=== PATIENT | female | born 1945 | race Caucasian/White ===

== ENCOUNTER 2025-01-21 22:41 | Inpatient (IN) | payer MEDICARE, OTHER ==
[~2025-01-21] VITALS: Ht 175.3 cm; Wt 108.9 kg
[2025-01-21 22:48] VITALS: TEMP 98.4
[2025-01-21] MEDS ORDERED: ACETAMINOPHEN 325 MG TAB PO STA (22:55)
[2025-01-21 23:06] VITALS: PULSE 81; RESP 27; O2SAT 99
[2025-01-21 23:59] LABS: HEMATOCRIT 37.6 % (34.2-44.1); HEMOGLOBIN 12.7 g/dL (12.0-16.0); LYMPHOCYTES # (AUTO) 0.5 (1.0-3.2); LYMPHOCYTES % 10.2 % (18.0-39.1); MEAN CORPUSCULAR HEMOGLOBIN 32.9 pg (28-32); MEAN CORPUSCULAR HGB CONC 33.8 g/dL (31-35); MEAN CORPUSCULAR VOLUME 97.4 fL (81-99); MONOCYTES # (AUTO) 0.8 (0.2-0.8); MONOCYTES % 15.8 % (4.4-11.3); NEUTROPHILS # (AUTO) 3.6 (2.1-6.9); NEUTROPHILS % 73.8 % (38.7-80.0); PLATELET COUNT 127 x10e3/uL (140-360); RED BLOOD COUNT 3.86 x10e6/uL (3.6-5.1); RED CELL DISTRIBUTION WIDTH 14.8 % (11.7-14.4); WHITE BLOOD COUNT 4.88 x10e3/uL (4.8-10.8)
[2025-01-22] VITALS (34 sets, daily range): BP systolic 106–179; BP diastolic 59–133; PULSE 51–90; RESP 14–31; TEMP 97.7–99; O2SAT 90–100
[2025-01-22] MEDS: LEVOFLOXACIN 750MG/D5W 150ML 150 ML IV ONE
[2025-01-22] MEDS: SODIUM CHLORIDE 0.9% 1000ML 1,000 ML IV STA (00:04)
[2025-01-22 00:20] LABS: ALBUMIN/GLOBULIN RATIO 1.2 (0.8-2.0); ANION GAP 17.7 mmol/L (8-16); BILIRUBIN,TOTAL 1.2 mg/dL (0.2-1.2); CALCIUM 9.5 mg/dL (8.4-10.2); CREATININE, SERUM 0.73 mg/dL (0.57-1.11); POTASSIUM 3.7 mmol/L (3.5-5.1); TOTAL PROTEIN 7.4 g/dL (6.5-8.1)
[2025-01-22 00:25] LABS: TROPONIN I 0.05 ng/mL (0-0.300)
[2025-01-22 00:35] LABS: CORONAVIRUS COVID-19 AG NEGATIVE (NEGATIVE); INFLUENZA A AG POSITIVE (NEGATIVE); INFLUENZA B AG NEGATIVE (NEGATIVE)
[2025-01-22] MEDS: HYDRALAZINE HCL 20 MG/ML VIAL IV STA (00:49)
[2025-01-22] MEDS ORDERED: ONDANSETRON HCL INJ 2MG/ML 2ML 2 MG/ML VIAL ONE (01:58)
[2025-01-22] MEDS ORDERED: HYDRALAZINE HCL 20 MG/ML VIAL IV PRN (02:00)
[2025-01-22] MEDS: ONDANSETRON HCL INJ 2MG/ML 2ML 2 MG/ML VIAL IV PRN (02:08)
[2025-01-22] MEDS ORDERED: FUROSEMIDE INJ 10 MG/ML 4 ML VIAL ONE (02:13)
[2025-01-22] MEDS: FUROSEMIDE INJ 10 MG/ML 4 ML VIAL IV SCH (02:17)
[2025-01-22] MEDS ORDERED: WARFARIN SODIU2.5 MG PO (04:01)
[2025-01-22] MEDS ORDERED: HYDROCHLOROTHIA25 MG PO (04:01)
[2025-01-22] MEDS ORDERED: TOPROL XL50 MG PO (04:01)
[2025-01-22] MEDS ORDERED: DIOVAN160 MG PO (04:01)
[2025-01-22] MEDS ORDERED: ARMOUR THYROID60 MG PO (04:03)
[2025-01-22] MEDS: Doxycycline IV 100 MG in SODIUM CHLORIDE 0.9% 100 ML IV SCH (08:24)
[2025-01-22] MEDS: VALSARTAN 160 MG TAB PO SCH (08:25)
[2025-01-22] MEDS: METOPROLOL SUCCINATE 50 MG TAB XL PO SCH (08:26)
[2025-01-22] MEDS: OSELTAMIVIR PHOSPHATE 75 MG CAP PO SCH (08:26)
[2025-01-22] MEDS: THYROID 60 MG TAB PO SCH (08:36)
[2025-01-22] MEDS ORDERED: IOPAMIDOL 370 MG/ML 100 ML INFUS..BTL INJ ONE (10:27)
[2025-01-22 11:25] LABS: INR 2.14
[2025-01-22 11:26] LABS: PARTIAL THROMBOPLASTIN TIME 40.5 seconds (23.8-35.5)
[2025-01-22 11:38] LABS: TROPONIN I 0.066 ng/mL (0-0.300)
[2025-01-22] MEDS ORDERED: ALBUTEROL/IPRATROPIUM 3 ML NEB NEB PRN (11:45)
[2025-01-22] MEDS: FUROSEMIDE INJ 10 MG/ML 4 ML VIAL IV ONE (12:44)
[2025-01-22] MEDS: WARFARIN SOD 2.5 MG TAB PO SCH (16:35)
[2025-01-22] MEDS: GUAIFENESIN 200 MG/10 ML UDC PO PRN (17:23)
[2025-01-22] MEDS ORDERED: LEVOFLOXACIN 750MG/D5W 150ML 150 ML IV SCH (21:00)
[2025-01-23] VITALS (35 sets, daily range): BP systolic 102–146; BP diastolic 57–106; PULSE 36–140; RESP 15–25; TEMP 99–100.1; O2SAT 89–100
[2025-01-23 07:11] LABS: BASOPHILS % 0.2 % (0.0-1.0); HEMATOCRIT 36.2 % (34.2-44.1); HEMOGLOBIN 12.2 g/dL (12.0-16.0); LYMPHOCYTES # (AUTO) 0.6 (1.0-3.2); LYMPHOCYTES % 12.1 % (18.0-39.1); MEAN CORPUSCULAR HEMOGLOBIN 33.1 pg (28-32); MEAN CORPUSCULAR HGB CONC 33.7 g/dL (31-35); MEAN CORPUSCULAR VOLUME 98.1 fL (81-99); MONOCYTES # (AUTO) 0.8 (0.2-0.8); MONOCYTES % 15.2 % (4.4-11.3); NEUTROPHILS # (AUTO) 3.7 (2.1-6.9); NEUTROPHILS % 72.1 % (38.7-80.0); PLATELET COUNT 125 x10e3/uL (140-360); RED BLOOD COUNT 3.69 x10e6/uL (3.6-5.1); RED CELL DISTRIBUTION WIDTH 14.6 % (11.7-14.4); WHITE BLOOD COUNT 5.13 x10e3/uL (4.8-10.8)
[2025-01-23] MEDS: ALBUTEROL/IPRATROPIUM 3 ML NEB NEB PRN (07:34)
[2025-01-23 07:40] LABS: INR 2.48; PROTHROMBIN TIME 28.1 seconds (11.9-14.5)
[2025-01-23 07:52] LABS: ALBUMIN 3.2 g/dL (3.5-5.0); ALBUMIN/GLOBULIN RATIO 1.2 (0.8-2.0); ANION GAP 12.8 mmol/L (8-16); BILIRUBIN,TOTAL 0.8 mg/dL (0.2-1.2); CALCIUM 8.7 mg/dL (8.4-10.2); CREATININE, SERUM 0.64 mg/dL (0.57-1.11); TOTAL PROTEIN 5.8 g/dL (6.5-8.1)
[2025-01-23 07:53] LABS: POTASSIUM 2.8 mmol/L (3.5-5.1)
[2025-01-23] MEDS: FUROSEMIDE INJ 10 MG/ML 4 ML VIAL IV SCH (08:12)
[2025-01-23 08:14] LABS: MAGNESIUM 1.6 MG/DL (1.3-2.1)
[2025-01-23] MEDS: METOPROLOL SUCCINATE 25 MG TAB XL PO SCH (08:19)
[2025-01-23 08:21] LABS: TROPONIN I 0.074 ng/mL (0-0.300)
[2025-01-23] MEDS: POTASSIUM CHLORIDE 20 MEQ TAB CR PO STA (08:28)
[2025-01-23 08:34] LABS: THYROID STIMULATING HORMONE 2.329 uIU/mL (0.350-4.940)
[2025-01-23] MEDS: MAGNESIUM SULFATE 2GM/50ML 50 ML IV ONE (09:33)
[2025-01-24] VITALS (17 sets, daily range): BP systolic 118–148; BP diastolic 66–109; PULSE 56–73; RESP 15–20; TEMP 97.4–99.1; O2SAT 95–100
[2025-01-24 06:58] LABS: BASOPHILS % 0.3 % (0.0-1.0); HEMOGLOBIN 12.4 g/dL (12.0-16.0); LYMPHOCYTES # (AUTO) 0.5 (1.0-3.2); LYMPHOCYTES % 13.8 % (18.0-39.1); MEAN CORPUSCULAR HEMOGLOBIN 32.9 pg (28-32); MEAN CORPUSCULAR HGB CONC 33.5 g/dL (31-35); MEAN CORPUSCULAR VOLUME 98.1 fL (81-99); MONOCYTES # (AUTO) 0.6 (0.2-0.8); MONOCYTES % 17.4 % (4.4-11.3); NEUTROPHILS # (AUTO) 2.4 (2.1-6.9); NEUTROPHILS % 67.9 % (38.7-80.0); PLATELET COUNT 115 x10e3/uL (140-360); RED BLOOD COUNT 3.77 x10e6/uL (3.6-5.1); RED CELL DISTRIBUTION WIDTH 14.8 % (11.7-14.4); WHITE BLOOD COUNT 3.56 x10e3/uL (4.8-10.8)
[2025-01-24 07:19] LABS: ALBUMIN/GLOBULIN RATIO 1.2 (0.8-2.0); BILIRUBIN,TOTAL 0.8 mg/dL (0.2-1.2); CALCIUM 8.6 mg/dL (8.4-10.2); CREATININE, SERUM 0.67 mg/dL (0.57-1.11); MAGNESIUM 1.9 MG/DL (1.3-2.1); TOTAL PROTEIN 5.6 g/dL (6.5-8.1)
[2025-01-24] MEDS ORDERED: GUAIFENESIN/CODEINE 5 ML LIQD PO PRN (08:45)
[2025-01-24] MEDS ORDERED: POTASSIUM CHLORIDE 20 MEQ TAB CR PO ONE (09:30)
[2025-01-24] MEDS: POTASSIUM CHLORIDE 20 MEQ TAB CR PO ONE (12:39)
[2025-01-25] VITALS (8 sets, daily range): BP systolic 110–139; BP diastolic 72–92; PULSE 60–80; RESP 18–20; TEMP 96.5–98.4; O2SAT 94–100
[2025-01-25 05:57] LABS: BASOPHILS % 0.5 % (0.0-1.0); EOSINOPHILS % 0.3 % (0.0-6.0); HEMATOCRIT 38.6 % (34.2-44.1); HEMOGLOBIN 13.1 g/dL (12.0-16.0); LYMPHOCYTES # (AUTO) 0.8 (1.0-3.2); LYMPHOCYTES % 20.8 % (18.0-39.1); MEAN CORPUSCULAR HEMOGLOBIN 32.8 pg (28-32); MEAN CORPUSCULAR HGB CONC 33.9 g/dL (31-35); MEAN CORPUSCULAR VOLUME 96.7 fL (81-99); MONOCYTES # (AUTO) 0.6 (0.2-0.8); MONOCYTES % 15.5 % (4.4-11.3); NEUTROPHILS # (AUTO) 2.4 (2.1-6.9); NEUTROPHILS % 62.6 % (38.7-80.0); PLATELET COUNT 114 x10e3/uL (140-360); RED BLOOD COUNT 3.99 x10e6/uL (3.6-5.1); RED CELL DISTRIBUTION WIDTH 14.7 % (11.7-14.4)
[2025-01-25 06:21] LABS: ALBUMIN 3.2 g/dL (3.5-5.0); ALBUMIN/GLOBULIN RATIO 1.2 (0.8-2.0); ANION GAP 12.5 mmol/L (8-16); BILIRUBIN,TOTAL 0.7 mg/dL (0.2-1.2); CALCIUM 8.8 mg/dL (8.4-10.2); CREATININE, SERUM 0.69 mg/dL (0.57-1.11); POTASSIUM 3.5 mmol/L (3.5-5.1); TOTAL PROTEIN 5.9 g/dL (6.5-8.1)
[2025-01-25] MEDS: POTASSIUM CHLORIDE 10MEQ EA PO ONE (09:11)
[2025-01-25] MEDS: FUROSEMIDE INJ 10 MG/ML 4 ML VIAL IV SCH (15:21)
[2025-01-26 03:34] VITALS: BP 136/84; PULSE 54; RESP 18; TEMP 97.2; O2SAT 98
[2025-01-26 06:15] LABS: BASOPHILS % 0.5 % (0.0-1.0); EOSINOPHILS % 0.5 % (0.0-6.0); HEMATOCRIT 36.8 % (34.2-44.1); HEMOGLOBIN 12.6 g/dL (12.0-16.0); LYMPHOCYTES # (AUTO) 0.9 (1.0-3.2); MEAN CORPUSCULAR HEMOGLOBIN 32.4 pg (28-32); MEAN CORPUSCULAR HGB CONC 34.2 g/dL (31-35); MEAN CORPUSCULAR VOLUME 94.6 fL (81-99); MONOCYTES # (AUTO) 0.6 (0.2-0.8); MONOCYTES % 14.2 % (4.4-11.3); NEUTROPHILS # (AUTO) 2.8 (2.1-6.9); NEUTROPHILS % 63.6 % (38.7-80.0); PLATELET COUNT 111 x10e3/uL (140-360); RED BLOOD COUNT 3.89 x10e6/uL (3.6-5.1); RED CELL DISTRIBUTION WIDTH 14.6 % (11.7-14.4); WHITE BLOOD COUNT 4.38 x10e3/uL (4.8-10.8)
[2025-01-26 06:37] LABS: ANION GAP 14.2 mmol/L (8-16); CALCIUM 8.7 mg/dL (8.4-10.2); CREATININE, SERUM 0.69 mg/dL (0.57-1.11); MAGNESIUM 1.7 MG/DL (1.3-2.1)
[2025-01-26 06:38] LABS: POTASSIUM 3.2 mmol/L (3.5-5.1)
[2025-01-26 07:08] VITALS: PULSE 62; RESP 20; O2SAT 96
[2025-01-26 07:56] LABS: LYMPHOCYTES % (MANUAL) 20 % (19-48); MONOCYTES % (MANUAL) 13 % (3.4-9.0); NEUTROPHILS % (MANUAL) 64 % (40-74); PLATELET ESTIMATE SLIGHTLY DECREASED; PLATELET MORPHOLOGY COMMENT FEW LARGE; REACTIVE LYMPHOCYTES 3
[2025-01-26 08:12] VITALS: BP 128/85; PULSE 89; RESP 18; TEMP 97.2; O2SAT 97
[2025-01-26] MEDS ORDERED: MAGNESIUM SULFATE 2GM/50ML 50 ML IV ONE (09:00)
[2025-01-26] MEDS: POTASSIUM CHLORIDE 10MEQ EA PO ONE (09:16)
[2025-01-26] MEDS: MAGNESIUM OXIDE 400 MG TAB PO ONE (09:53)
[2025-01-26 10:18] VITALS: BP 128/85; PULSE 89; RESP 18; TEMP 97.2; O2SAT 97
[2025-01-26 11:30] VITALS: BP 103/65; PULSE 72; RESP 18; TEMP 97.3; O2SAT 98
[2025-01-26 13:59] VITALS: PULSE 65; RESP 20; O2SAT 97
[2025-01-26] MEDS ORDERED: DOXYCYCLINE HY100 MG PO (15:46)
[2025-01-26] MEDS ORDERED: TAMIFLU75 MG PO (15:46)
[2025-01-26] MEDS ORDERED: POTASSIUM CHLO10 ME1 PO (15:46)
[2025-01-26] MEDS ORDERED: LASIX20 MG PO (15:46)
[2025-01-26] MEDS ORDERED: TOPROL XL25 MG PO (15:46)
== END 2025-01-26 16:30 | disposition home or self-care (01) | DRG 871 ==
LOC: ER 22:46 → ICU 01-22 01:42 → MED/SURG3 01-24 09:30
PROVIDERS: ADMIT Internal Medicine; ATTEND Internal Medicine
DX: A41.89 Other specified sepsis (principal); I50.33 Acute on chronic diastolic (congestive) heart failure; J96.01 Acute respiratory failure with hypoxia; J10.08 Influenza due to other identified influenza virus with other specified pneumonia; J15.9 Unspecified bacterial pneumonia; E87.20 Acidosis, unspecified; I48.20 Chronic atrial fibrillation, unspecified; J10.2 Influenza due to other identified influenza virus with gastrointestinal manifestations; I11.0 Hypertensive heart disease with heart failure; I16.0 Hypertensive urgency; R65.20 Severe sepsis without septic shock; I89.0 Lymphedema, not elsewhere classified; D69.6 Thrombocytopenia, unspecified; Z79.01 Long term (current) use of anticoagulants; E87.6 Hypokalemia; E07.9 Disorder of thyroid, unspecified; Z11.52 Encounter for screening for COVID-19; Z86.718 Personal history of other venous thrombosis and embolism
CPT/HCPCS: 36415; 51700; 51798; 71045; 71260; 74177; 80048; 80053; 82550; 83518; 83605; 83690; 83735; 83880; 84132; 84443; 84484; 85025; 85610; 85730; 87040; 93005; 93306; 94640; 94799; 99252; 99285; J0360; J1940; J2405; J3475; J7030; J7050; Q9967

== ENCOUNTER → 2025-09-12 | Outpatient (REF) | payer MEDICARE ==
[~2025-09-12] MED LIST: ARMOUR THYROID60 MG PO; DIOVAN160 MG PO; DOXYCYCLINE HY100 MG PO; HYDROCHLOROTHIA25 MG PO; LASIX20 MG PO; POTASSIUM CHLO10 ME1 PO; TAMIFLU75 MG PO; TOPROL XL25 MG PO; TOPROL XL50 MG PO; WARFARIN SODIU2.5 MG PO
== END ==
LOC: CARD 10:05
PROVIDERS: ATTEND Internal Medicine Infectious Disease
DX: R60.0 Localized edema (principal)
CPT/HCPCS: 93922; 93925; 93970